=== PATIENT | male | born 1995 | race Caucasian/White ===

== ENCOUNTER 2020-03-08 21:57 | Emergency (ER) | payer SELFPAY ==
[2020-03-09] MEDS ORDERED: ALPRAZolam 0.5 MG Tab PO STA (00:33)
[2020-03-09] MEDS ORDERED: Ketorolac 30 MG/ML SDV IM ONE (00:33)
--- NOTE | 2020-03-09 01:31 | EDM.PDOC ---
ED HPI GENERAL MEDICAL PROBLEM - General Chief Complaint: Back Pain or Injury Stated Complaint: BACK PAIN Time Seen by Provider: 03/08/20 23:36 - History of Present Illness INITIAL COMMENTS - FREE TEXT/NARRATIVE: CHIEF COMPLAINT(S): Back pain HISTORY OF PRESENT ILLNESS: This is a 24-year-old man with a past medical history of mental health issues and pleurisy in the past who comes to the emergency department with a chief complaint of back pain. The patient states that for the last 16 hours he has been experiencing pain located on the bottom of his ribs located anteriorly and posteriorly. He describes the pain as sharp and achy rated 9-10 out of 10. He states that the pain is worse with movement and deep breathing's. He states that sitting still is what helps. He denies any radiation of this pain. He denies any cough, nausea vomiting, chest pain, runny nose. He states that it is so painful that it took him quite a long time to get out of bed. He states that he did take Aleve at approximately 1 PM but it did not seem to help. 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 He states that this has happened once before when he had pleurisy. He denies any other symptoms. He denies any injury. The patient denies any midline thoracic, cervical, or lumbar pain. He denies any bowel incontinence, urinary retention or decreased sensation when wiping. REVIEW OF SYSTEMS: Constitutional: Denies fever, chills. Eyes: Denies eye pain Ears, Nose, Mouth, & Throat: Denies earache Cardiovascular: Denies chest pain Respiratory: Denies shortness of breath Gastrointestinal: Denies Nausea, vomiting, diarrhea, hematochezia. Genitourinary: Denies hematuria Skin:Denies a rash Neurological: Denies blurred vision MSK: Positive for anterior and posterior rib pain Psychiatric: Denies depression PAST MEDICAL HISTORY: As per history of present illness and as reviewed below otherwise noncontributory. SURGICAL HISTORY: As per history of present illness and as reviewed below otherwise noncontributory. SOCIAL HISTORY: As per history of present illness and as reviewed below otherwise noncontributory. FAMILY HISTORY: As per history of present illness and as reviewed below otherwise noncontributory. EXAMINATION OF ORGAN SYSTEMS/BODY AREAS: Constitutional: Blood pressure was 109/56, heart rate 60, respiratory rate 18 with an oxygen saturation 97% on room air. Temperature 36.2 General: Young man who does not appear to be in acute distress Psychiatric: Appropriate mood and affect. Eyes: No scleral icterus or conjunctival erythema ENMT: Moist mucous membranes. No pharyngeal erythema Cardiovascular: Regular, rate, and rhythm. No gallops, murmurs, or rubs. Bilateral upper extremity pulses symmetric and intact. No peripheral edema. No JVD. Respiratory: Lungs clear to auscultation bilaterally. No wheezes, rales, or rhonchi. Gastrointestinal: Soft, non-tender, non-distended. Normoactive bowel sounds Genitourinary: No suprapubic tenderness Musculoskeletal: Normal range of motion. No obvious chest wall tenderness or abnormality. No skin lesions. Skin: No lesions or abrasions. Neurological: Alert, GCS 15 and sensation grossly intact. MEDICAL DECISION MAKING AND COURSE IN THE ED WITH INTERPRETATION/REVIEW OF DIAGNOSTIC STUDIES: This is a 24-year-old man and with a past medical history of mental health issues and history of pleurisy who comes to the emergency department with acute pleuritic chest pain located on the bilateral lower lobes. At this time I did discuss with patient that I could provide him with Toradol for pain relief and Xanax for the possibility that there could be some muscle spasm. I offered the patient a chest x-ray however he stated that he did not want the chest x-ray. I discussed with him that at this time I do not believe any labs or imaging is indicated as his vitals are normal. Discussed with him I had like him to use an incentive spirometer to prevent pneumonia. We will reevaluate the patient's pain. On reevaluation the patient stated that his pain has stayed about the same. Again I did offer a chest x-ray for further evaluation however he stated that he does not have insurance and he does not want a chest x-ray. Therefore I did discuss with him that at this time he should use [id number] Tylenol, Motrin, Voltaren cream or lidocaine cream. I discussed follow-up with primary care physician. I did discuss with him that at this time he can speak with our commercial front load operator about obtaining insurance. In addition it was at this time that he discussed with me that his prior mental health issues include depression, PTSD, and borderline personality disorder. He was told by his family member that he is probably on a list and that is why people do not give him his medications. I did discuss them at this time that we do have a prescription monitoring program however I did not review it. I discussed with him that at this time it is not appropriate for me to prescribe any kind of medications including Xanax or antidepressants. I discussed this is best handled with a primary care physician. He did express understanding. He is to return to the emergency department for any new or worsening symptoms. DISPOSITION: The patient was discharged home in stable condition. The patient will follow up with primary care physician within 2 to 3 days CONDITION: Fair PROCEDURES: None FINAL IMPRESSION(S)/DIAGNOSES: 1. Acute pleuritic chest pain likely secondary to pleurisy given his history Sarmad Woodward M.D. back Pain Score (Numeric/FACES): 10 - Related Data Allergies Allergy/AdvReac Type Severity Reaction Status Date / Time No Known Allergies Allergy Verified 03/08/20 22:56 Home Meds: Home Meds . [No Known Home Meds] 03/08/20 [History] Past Medical History - Past Health History Medical/Surgical History: Denies Medical/Surgical History Social & Family History - Family History Family Medical History: No Pertinent Family History - Recreational Drug Use Recreational Drug Type: Reports: Marijuana/Hashish ED ROS GENERAL - Review of Systems Review Of Systems: See Below ED EXAM, GENERAL - Physical Exam Exam: See Below Course - Vital Signs Last Recorded V/S: Last Vital Signs Temp 36.2 C 03/08/20 22:53 Pulse 56 L 03/09/20 01:40 Resp 18 03/09/20 01:40 BP 112/66 03/09/20 01:40 Pulse Ox 97 03/09/20 01:40 - Orders/Labs/Meds Meds: Medications Discontinued Medications Generic Name Dose Route Start Last Admin Trade Name Freq PRN Reason Stop Dose Admin Alprazolam 0.5 mg 03/09/20 00:33 03/09/20 00:42 Xanax PO 03/09/20 00:34 0.5 mg NOW STA Administration Ketorolac Tromethamine 30 mg 03/09/20 00:33 03/09/20 00:39 Toradol IM 03/09/20 00:34 30 mg ONETIME ONE Administration Departure - Departure Time of Disposition: 01:26 Disposition: Home, Self-Care 01 Condition: Fair Clinical Impression: Pleurisy - Discharge Information *PRESCRIPTION DRUG MONITORING PROGRAM REVIEWED*: No *COPY OF PRESCRIPTION DRUG MONITORING REPORT IN PATIENT CANDIDA: No Instructions: Pleurisy, [id number] Referrals: Larissa Vides [Primary Care Provider] - Forms: ED Department Discharge Additional Instructions: Your evaluated today on an emergent basis. I do believe your pain is secondary to pleurisy. This can be difficult to treat. However you may take Tylenol 500 to 1000 mg every 6 hours and ibuprofen 400 mg to 600 mg every 6 hours. You can also attempt to use [id number] Voltaren cream which can be applied to the area. Please use the incentive spirometer as frequently as you can to prevent pneumonia. Please follow-up with primary care physician in 2 to 3 days for further evaluation and monitoring. Please return if you have any new or worsening symptoms such as worsening pain, shortness of breath, cough, or fever. Bartolo Nava [facility] [address] [place], [place] [id number] [address] [id number] The patient is informed of any results of their evaluation and diagnostic workup and all questions are answered. They are given discharge instructions and return precautions. The patient is stable for discharge. The patient states they understand and agree with the plan and that they will return if their symptoms get worse or if they have any new concerns. The following information is given to patients seen in the emergency department who are being discharged to home. This information is to outline your options for follow-up care. We provide all patients seen in our emergency department with a follow-up referral. The need for follow-up, as well as the timing and circumstances, are variable depending upon the specifics of your emergency department visit. If you don't have a primary care physician on staff, we will provide you with a referral. We always advise you to contact your personal physician following an emergency department visit to inform them of the circumstance of the visit and for follow-up with them and/or the need for any referrals to a consulting specialist. The emergency department will also refer you to a specialist when appropriate. This referral assures that you have the opportunity for follow-up care with a specialist. All of these measure are taken in an effort to provide you with optimal care, which includes your follow-up. Under all circumstances we always encourage you to contact your private physi debbie who remains a resource for coordinating your care. When calling for follow- up care, please make the office aware that this follow-up is from your recent emergency room visit. If for any reason you are refused follow-up, please contact the [facility] Emergency Department at and asked to speak to the emergency department charge nurse. Sepsis Event Note (ED) - Evaluation Sepsis Screening Result: No Definite Risk
== END 2020-03-09 01:40 | disposition home or self-care (01) ==
LOC: MW.ED 21:57
DX: R09.1 Pleurisy (principal)
CPT/HCPCS: 96372; 99283; A9270; J1885; 99282